=== PATIENT | female | born 1945 | race Caucasian/White ===

== ENCOUNTER 2021-04-23 13:23 | Outpatient (CLI) | payer MEDICARE, OTHER, SELFPAY ==
--- NOTE | 2021-04-23 13:36 | MM_ITS ---
WS: [id number] BILATERAL DIGITAL SCREENING MAMMOGRAPHY WITH CAD CLINICAL INFORMATION: SCREENING HISTORY: Screening mammogram. No current complaints. COMPARISON: 010 TECHNIQUE: Bilateral CC and MLO views. FINDINGS: Scattered fibroglandular densities bilaterally. Vascular calcification. A few benign incidental punct ate calcifications are unchanged. Coarse clustered calcifications left breast. No suspicious focal ma ss, asymmetry, calcifications, or architectural distortion. No evidence of malignancy. MM/[place] [id number] IMPRESSION: BI-RADS: 2-Benign FOLLOW UP: 1 Year Follow-up Recommend return to annual screening mammography.
== END 2021-04-23 13:24 | disposition home or self-care (01) ==
PROVIDERS: PCP Nurse Practitioner; Visit Provider Nurse Practitioner
DX: Z12.31 Encounter for screening mammogram for malignant neoplasm of breast (principal)
CPT/HCPCS: 77067

== ENCOUNTER 2023-02-14 15:37 | Observation (INO) | payer MEDICARE, OTHER, SELFPAY ==
[2023-02-14 15:52] VITALS: BP 165/97; PULSE 85; RESP 17; TEMP 37; O2SAT 100; BMI 30.1
--- NOTE | 2023-02-14 15:55 | USR_ITS ---
PROCEDURE INFORMATION: Exam: US Duplex Left Lower Extremity Veins, Limited Exam date and time: 02/14/2023 4:20 PM Age: 77 years old Clinical indication: Pain; Leg, lower; Left; Additional info: Swelling TECHNIQUE: Imaging protocol: Real-time duplex ultrasound of the left extremity with 2-D jeffries scale, color Doppler flow and spectral waveform analysis including responses to compression and other maneuvers (when performed) with image documentation. Limited exam focused on the left lower extremity veins. COMPARISON: No relevant prior studies available. FINDINGS: Left deep veins: Unremarkable. The common femoral, femoral, proximal profunda femoral, popliteal, posterior tibial and peroneal veins are patent without thrombus. Normal compressibility, augmentation response and Doppler waveforms. Superficial veins: Unremarkable. Saphenofemoral junction is patent without thrombus. Soft tissues: Subcutaneous edema and calf. US/CV venous duplex [facility] [id number] IMPRESSION: No sonographic evidence of deep vein thrombosis.
--- NOTE | 2023-02-14 16:04 | W.ED.EXTPRO ---
HPI - Extremity Problem General: Chief complaint: Extremity Problem,Nontraumatic Stated complaint: left foot/leg pain Time Seen by Provider: 02/14/23 15:52 Source: patient Mode of arrival: ambulatory Limitations: no limitations History of Present Illness: Patient is a 77-year-old female who presents the emergency room with left leg redness and pain. Patient reports on Tuesday 02[facility]06, [facility] she was walking around a lot. States that when she noticed her left leg increasing in swelling and redness. Patient reports that she has had fevers for the past 2 to 3 days. Denies any chest pain or shortness of breath or abdominal pain. Reports minimal pain 06/26. MD Complaint: extremity pain and extremity swelling Onset (ago): week(s) (1) Location: left Associated symptoms: Reports fever(s); Deny chest pain Review of Systems Const: Reports: fever(s), chills and night sweats Eyes: Denies: change in vision or blurry vision ENMT: Denies: throat pain Card: Denies: chest pain or palpitations Resp: Denies: dyspnea or productive cough GI: Denies: abdominal pain, nausea or vomiting : Denies: flank pain Musc: Denies: neck pain or back pain Skin/Breast: Reports: erythema and skin tenderness Neuro: Reports: weakness in extremities; Denies: headache(s) or numbness in extremities Physical Exam Const: COMMON NORMALS: no acute distress and alert GENERAL APPEARANCE: cooperative HENMT: COMMON NORMALS: normocephalic HEAD & SCALP: normocephalic Eye: COMMON NORMALS: Equal, round and reactive pupils present and EOMs intact bilaterally PUPIL: Yes Equal, round and reactive pupils present Neck/C-Spine: COMMON NORMALS: full ROM, no lymphadenopathy and no JVD Lymph: LYMPHATIC: no lymphadenopathy noted Chest: CHEST: Yes Symmetrical chest wall rise Resp: COMMON NORMALS: normal respiratory effort and clear to auscultation bilaterally AUSCULTATION: clear to auscultation bilaterally Cardio: COMMON NORMALS: no JVD and S1 normal heart sound present HEART SOUNDS: S1 normal heart sound present GI: COMMON NORMALS: Normal to inspection, nondistended, normoactive bowel sounds present : COMMON NORMALS: Yes no CVA tenderness BLADDER/KIDNEY EXAM: Yes no CVA tenderness Back/Pelvis: COMMON NORMALS: no CVA tenderness Extremity: LEFT LOWER EXTREMITY: Yes lower leg (4 pitting edema) Left lower leg: Yes inspection and Yes palpation Neuro: SENSORIUM/ORIENTATION: Yes alert Skin: GENERAL SKIN EXAM: erythema Course Vital Signs: Vital signs: Vital Signs Temperature 98.6 F 02/14/23 15:52 Pulse Rate 85 02/14/23 15:52 Respiratory Rate 17 02/14/23 15:52 Blood Pressure 165/97 02/14/23 15:52 Pulse Oximetry 100 02/14/23 15:52 Oxygen Delivery Me thod Room Air 02/14/23 15:52 MDM - Extremity (Nontraumatic) Medical Decision Making Patient presents here with cellulitis of her left lower leg ultrasound showed no DVT spoke to the hospitalist will admit at this time. Medical Records I reviewed the patient's medical records. Lab Data I reviewed the patient's lab results. 02/14/23 16:08 02/14/23 16:08 Laboratory Results WBC 8.99 10^3/uL (3.29-11.43) 02/14/23 16:08 RBC 4.56 10^6/uL (3.85-5.65) 02/14/23 16:08 Hgb 13.40 g/dL (11.27-16.99) 02/14/23 16:08 Hct 40.3 % (36-47) 02/14/23 16:08 MCV 88.4 fl (85-98) 02/14/23 16:08 MCH 29.4 pg (27-33) 02/14/23 16:08 MCHC 33.3 g/dL (30-55) 02/14/23 16:08 RDW 13.0 % (12.1-15.1) 02/14/23 16:08 Plt Count 224 10^3/cmm (157-399) 02/14/23 16:08 MPV 10.3 fL (7.4-10.4) 02/14/23 16:08 Neut % (Auto) 66.7 % 02/14/23 16:08 Lymph % (Auto) 21.2 % 02/14/23 16:08 [place] % (Auto) 8.9 % 02/14/23 16:08 Eos % (Auto) 2.1 % 02/14/23 16:08 Baso % (Auto) 0.7 % 02/14/23 16:08 Neut # (Auto) 5.99 10^3/uL (1.8-7.7) 02/14/23 16:08 Lymph # (Auto) 1.9 10^3/uL (0.8-4.8) 02/14/23 16:08 [place] # (Auto) 0.8 10^3/uL (0.2-0.9) 02/14/23 16:08 Eos # (Auto) 0.2 10^3/uL (0.0-0.8) 02/14/23 16:08 Baso # (Auto) 0.1 10^3/uL (0.0-0.1) 02/14/23 16:08 Nucleated RBC % (auto) 0 % 02/14/23 16:08 Nucleated RBCs # 0.0 /100WBC 02/14/23 16:08 Sodium 137 mmol/L (136-145) 02/14/23 16:08 Potassium 3.5 mmol/L (3.5-5.1) 02/14/23 16:08 Chloride 100 mmol/L (98-107) 02/14/23 16:08 Carbon Dioxide 22 mmol/L (22-29) 02/14/23 16:08 Anion Gap 18.5 (5-19) 02/14/23 16:08 BUN 19 mg/dL (8-23) 02/14/23 16:08 Creatinine 1.0 mg/dL (0.5-0.9) H 02/14/23 16:08 GFR Calculation Not Reportable 02/14/23 16:08 Glucose 139 mg/dL (65-115) H 02/14/23 16:08 Calculated Osmolality 289 mOsm/kg (285-295) 02/14/23 16:08 Calcium 9.1 mg/dL (8.5-10.5) 02/14/23 16:08 All radiology interpretation(s) finalized by discharge Discharge Plan Discharge Patient Disposition: Placed in Observation Clinical Impression: Cellulitis Coding Level of Care Code ED Cuprous Chloride Helper for Fabrice Kang
[2023-02-14 16:16] LABS: Basophils # 0.1 10^3/uL (0.0-0.1); Basophils % 0.7 %; Eosinophils # 0.2 10^3/uL (0.0-0.8); Eosinophils % 2.1 %; Hematocrit 40.3 % (36-47); Lymphocytes # 1.9 10^3/uL (0.8-4.8); Lymphocytes % 21.2 %; Mean Corpuscular HGB Conc 33.3 g/dL (30-55); Mean Corpuscular Hemoglobin 29.4 pg (27-33); Mean Corpuscular Volume 88.4 fl (85-98); Mean Platelet Volume 10.3 fL (7.4-10.4); Monocytes # 0.8 10^3/uL (0.2-0.9); Monocytes % 8.9 %; Neutrophils # 5.99 10^3/uL (1.8-7.7); Neutrophils % 66.7 %; Nucleated Red Blood Cells % 0 %; Platelet Count 224 10^3/cmm (157-399); Red Blood Count 4.56 10^6/uL (3.85-5.65); White Blood Count 8.99 10^3/uL (3.29-11.43)
[2023-02-14 16:39] LABS: Anion Gap 18.5 (5-19); Blood Urea Nitrogen 19 mg/dL (8-23); Calcium 9.1 mg/dL (8.5-10.5); Carbon Dioxide 22 mmol/L (22-29); Chloride 100 mmol/L (98-107); Creatinine Clr Calc Pharmacy 47.0593; Glucose 139 mg/dL (65-115); Osmolality Calculated 289 mOsm/kg (285-295); Potassium 3.5 mmol/L (3.5-5.1); Sodium 137 mmol/L (136-145)
[2023-02-14] MEDS: vancomycin 1,000 MG in sodium chloride 0.9% 250 ML 250 MG IV (17:40)
--- NOTE | 2023-02-14 17:55 | PM.HP ---
Providers/Chief Complaint Admitting Physician: Arturo Smith MD Primary Care Provider: MAHESH Lyons Chief Complaint: left foot/leg pain History of Present Illness Kanika Encinas is a 77 year old female who carries a history of diabetes, hypertension presented to hospital with 3-day symptoms of left lower leg redness and swelling. She does not have significant past medical history, she has not noticed any nausea, vomiting or fever. She is endorsing low-grade fever at home 99.9. In the ER she has been diagnosed with nonpurulent cellulitis I have requested CT scan of leg added IV antibiotics Check A1c level. Patient does not check her blood sugar on a daily basis. We will check CT scan of leg to rule out abscess she is not septic Review of Systems Const: Denies: fever(s) or chills Eyes: Denies: change in vision ENMT: Denies: throat pain Card: Denies: chest pain Resp: Denies: dyspnea GI: Denies: nausea : Denies: flank pain Musc: Denies: neck pain Skin/Breast: Reports: rash and skin swelling Neuro: Denies: headache(s) Psych: Reports: anxiety Medications/Allergies Home Medications Medication Instructions Recorded Confirmed Last Taken Type furosemide 20 mg tablet 20 mg PO DAILY 02/14/23 02/14/23 02/14/23 History lisinopril 20 mg tablet 20 mg PO DAILY 02/14/23 02/14/23 02/14/23 History metformin 500 mg tablet 1,000 mg PO BID 02/14/23 02/14/23 02/14/23 History potassium chloride 10 mEq 10 meq PO DAILY 02/14/23 02/14/23 02/14/23 History tablet,extended release PFSH Acute PFSH: Medical History (Updated 02/14/23 @ 18:27 by Arturo Smith MD) Diabetes Hypertension Surgical History (Updated 02/14/23 @ 18:28 by Arturo Smith MD) No pertinent past surgical history Vitals/I&O/Wt Last Vital Signs Temp 98.6 F 02/14/23 15:52 Pulse 85 02/14/23 15:52 Resp 17 02/14/23 15:52 BP 165/97 02/14/23 15:52 Pulse Ox 100 02/14/23 15:52 O2 Del Method Room Air 02/14/23 15:52 Weight last 48 hrs Weight 77.111 kg Physical Exam Narrative: Left lower leg swelling, redness without any signs of purulence Onychomycosis Awake and alert Due to 50 S1, S2 Nonfocal neuro exam Present Family at the bedside Data 02/14/23 16:08 02/14/23 16:08 Micro: Microbiology 02/14/23 17:00 Blood Culture - Preliminary Blood SPECIMEN COLLECTED A&P Assessment and plan (1) Cellulitis: Plan Nonpurulent cellulitis Antibiotics Patient is diabetic Check A1c level No signs of sepsis CT scan of lower leg requested Continue Lasix potassium and lisinopril at this point Full code Cardiac consistent carb diet GCS 15 DVT prophylaxis on Attestations Medical Necessity Statement*: Anticipating discharge within 48 hours Diagnoses Cellulitis L03.90
[2023-02-14 18:21] VITALS: BP 125/90; PULSE 86; O2SAT 96
--- NOTE | 2023-02-14 18:30 | CTR_ITS ---
PROCEDURE INFORMATION: Exam: CT Left Lower Extremity With Contrast; Lower Leg Exam date and time: 02/14/2023 10:50 PM Age: 77 years old Clinical indication: Cellulitis; Lower leg; Left TECHNIQUE: Imaging protocol: CT of the left lower extremity with intravenous contrast was performed. Exam focused on the lower leg. Radiation optimization: All CT scans at this facility use at least one of these dose optimization techniques: automated exposure control; mA and/or kV adjustment per patient size (includes targeted exams where dose is matched to clinical indication); or iterative reconstruction. Contrast material: OMNI 350; Contrast volume: 100 ml; Contrast route: INTRAVENOUS (IV); REPORTING DATA: Count of CT and Cardiac NM exams in prior 12 months: This patient has received 0 known CTs and 0 known cardiac nuclear medicine studies in the 12 months prior to the current study. COMPARISON: [place] [id number] 02/14/2023 4:20 PM RADIATION DOSE METRICS: Total DLP (mGy-cm): 597.95 FINDINGS: Bones/joints: No acute fracture or dislocation noted. No suspicious bone lesion is identified. Soft tissues: Extensive left lower lateral leg and ankle subcutaneous edema. Some pockets of subcutaneous fluid but no rim enhancing fluid collection. No soft tissue air. Popliteal node on series 5, image 14. Vasculature: Advanced diffuse vascular calcification noted. CT/CT lower leg LT w con [id number] IMPRESSION: Left lower leg and ankle/foot severe cellulitis with no abscess or soft tissue gas noted.
[2023-02-14 20:00] VITALS: BP 136/77; PULSE 86; RESP 18; TEMP 36.5; O2SAT 99
[2023-02-14] MEDS: enoxaparin 40 mg/0.4 mL Syringe SUBCUT (20:05)
[2023-02-14] MEDS: piperacillin-tazobactam 3.375 GM in sodium chloride 0.9% (plus) 50 ML IV (20:05)
[2023-02-14 20:53] LABS: Glucose Point of Care 223 mg/dL (70-110)
[2023-02-14 21:06] LABS: Estmated Average Glucose 131; Hemoglobin A1C 6.2 % (4.0-6.0)
[2023-02-14] MEDS: insulin lispro 100 unit/1 mL SUBCUT (21:18)
[2023-02-14 22:28] VITALS: PULSE 88; RESP 18; O2SAT 98
[2023-02-14] MEDS: iohexol 350 mg/mL 500 mL Btl (per mL) IV (22:34)
[2023-02-15] VITALS (8 sets, daily range): BP systolic 125–159; BP diastolic 72–83; PULSE 74–90; RESP 16–18; TEMP 36.4–37.1; O2SAT 93–98
[2023-02-15] MEDS: piperacillin-tazobactam 3.375 GM in sodium chloride 0.9% (plus) 50 ML IV ×3 (03:59→19:42)
[2023-02-15 04:12] LABS: Basophils # 0.1 10^3/uL (0.0-0.1); Basophils % 0.9 %; Eosinophils # 0.1 10^3/uL (0.0-0.8); Eosinophils % 1.7 %; Hematocrit 35.5 % (36-47); Lymphocytes # 1.7 10^3/uL (0.8-4.8); Lymphocytes % 20.5 %; Mean Corpuscular Hemoglobin 29.3 pg (27-33); Mean Platelet Volume 10.6 fL (7.4-10.4); Monocytes # 0.8 10^3/uL (0.2-0.9); Monocytes % 9.3 %; Neutrophils # 5.44 10^3/uL (1.8-7.7); Neutrophils % 67.1 %; Nucleated Red Blood Cells % 0 %; Platelet Count 221 10^3/cmm (157-399); Red Blood Count 3.99 10^6/uL (3.85-5.65)
[2023-02-15 04:43] LABS: Anion Gap 13.4 (5-19); Blood Urea Nitrogen 13 mg/dL (8-23); C Reactive Protein 72.9 mg/L (0.0-4.9); Calcium 8.8 mg/dL (8.5-10.5); Carbon Dioxide 26 mmol/L (22-29); Chloride 103 mmol/L (98-107); Glucose 133 mg/dL (65-115); Magnesium 2.1 mg/dL (1.7-2.3); Osmolality Calculated 290 mOsm/kg (285-295); Potassium 3.4 mmol/L (3.5-5.1); Sodium 139 mmol/L (136-145)
[2023-02-15] MEDS: sennosides-docusate Tablet 1 TAB PO (07:44)
[2023-02-15] MEDS: FUROsemide 20 mg Tablet PO (07:44)
[2023-02-15] MEDS: lisinopril 20 mg Tablet PO (07:45)
[2023-02-15] MEDS: potassium chloride ER 10 mEq Tablet PO (07:45)
[2023-02-15 08:01] LABS: Glucose Point of Care 96 mg/dL (70-110)
--- NOTE | 2023-02-15 10:07 | PM.PN ---
Subjective Subjective: Cellulitis seems to be getting better Continue IV antibiotics for 1 more day Events No sign of abscess or sepsis Vitals/I&O/Wt Last Vital Signs Temp 97.5 F L 02/15/23 08:36 Pulse 77 02/15/23 08:36 Resp 16 02/15/23 08:36 BP 152/81 02/15/23 08:36 Pulse Ox 96 02/15/23 08:36 O2 Del Method Room Air 02/15/23 08:36 02/14/23 02/15/23 02/15/23 22:59 06:59 14:59 Intake Total 490 / 490 50 / 540 410 / 410 Output Total 300 / 300 Balance 490 / 490 -250 / 240 410 / 410 Weight last 48 hrs Weight 77.111 kg Physical Exam Narrative: Patient is awake and alert Left leg erythema seems to be getting better No active DVT Focal neuro exam Currently on room air Pleasant and cooperative Eating breakfast S1, S2 Data 02/15/23 03:14 02/15/23 03:14 Micro: Microbiology 02/14/23 17:42 Blood Culture - Preliminary Blood SPECIMEN COLLECTED 02/14/23 17:00 Blood Culture - Preliminary Blood SPECIMEN COLLECTED A&P Assessment and plan (1) Cellulitis: Plan Nonpurulent cellulitis No sign of sepsis Continue IV antibiotics Erythema/hyperemia regressing No signs of abscess CT scan reviewed Her redness is getting better however it is still involving whole left lower extremity I would like to keep her here 1 more day for IV antibiotics Most likely will be able to discharge on oral antibiotics tomorrow Replenish electrolytes, potassium is low Patient takes metformin at home hemoglobin A1c 6.2 Attestations Medical Necessity Statement*: Discharge tomorrow Diagnoses Cellulitis L03.90
[2023-02-15] MEDS: potassium chloride ER 20 mEq Tablet PO (10:23)
[2023-02-15 11:22] LABS: Glucose Point of Care 148 mg/dL (70-110)
[2023-02-15] MEDS: insulin lispro 100 unit/1 mL SUBCUT (11:51)
[2023-02-15 16:38] LABS: Glucose Point of Care 119 mg/dL (70-110)
[2023-02-15] MEDS: vancomycin 1,000 MG in sodium chloride 0.9% 250 ML 250 MG IV (17:21)
[2023-02-15] MEDS: enoxaparin 40 mg/0.4 mL Syringe SUBCUT (17:21)
[2023-02-15 21:13] LABS: Glucose Point of Care 165 mg/dL (70-110)
[2023-02-16] VITALS: BP 120/86; PULSE 80; RESP 18; TEMP 36.9; O2SAT 98
[2023-02-16] MEDS: piperacillin-tazobactam 3.375 GM in sodium chloride 0.9% (plus) 50 ML IV (03:45)
[2023-02-16 05:00] VITALS: BP 139/77; PULSE 79; RESP 18; TEMP 36.9; O2SAT 93
[2023-02-16 05:42] LABS: Basophils # 0.1 10^3/uL (0.0-0.1); Basophils % 0.9 %; Eosinophils # 0.3 10^3/uL (0.0-0.8); Eosinophils % 3.3 %; Hematocrit 36.3 % (36-47); Lymphocytes # 1.7 10^3/uL (0.8-4.8); Lymphocytes % 22.4 %; Mean Corpuscular HGB Conc 34.2 g/dL (30-55); Mean Corpuscular Hemoglobin 29.9 pg (27-33); Mean Corpuscular Volume 87.5 fl (85-98); Mean Platelet Volume 10.4 fL (7.4-10.4); Monocytes # 0.7 10^3/uL (0.2-0.9); Monocytes % 9.3 %; Neutrophils # 4.72 10^3/uL (1.8-7.7); Nucleated Red Blood Cells % 0 %; Platelet Count 255 10^3/cmm (157-399); Red Blood Count 4.15 10^6/uL (3.85-5.65)
[2023-02-16 05:53] LABS: Anion Gap 16.5 (5-19); Blood Urea Nitrogen 10 mg/dL (8-23); Carbon Dioxide 23 mmol/L (22-29); Chloride 100 mmol/L (98-107); Glucose 137 mg/dL (65-115); Osmolality Calculated 283 mOsm/kg (285-295); Potassium 3.5 mmol/L (3.5-5.1); Sodium 136 mmol/L (136-145)
[2023-02-16 06:32] LABS: Glucose Point of Care 125 mg/dL (70-110)
[2023-02-16 07:05] VITALS: BP 158/81; PULSE 82; RESP 15; O2SAT 98
[2023-02-16 08:37] VITALS: PULSE 82; RESP 16; O2SAT 95
[2023-02-16] MEDS: potassium chloride ER 10 mEq Tablet PO (08:41)
[2023-02-16] MEDS: FUROsemide 20 mg Tablet PO (08:42)
[2023-02-16] MEDS: lisinopril 20 mg Tablet PO (08:43)
[2023-02-16] MEDS: sennosides-docusate Tablet 1 TAB PO (08:43)
[2023-02-16] MEDS: potassium chloride ER 20 mEq Tablet PO (08:44)
--- NOTE | 2023-02-16 10:31 | PM.DCS ---
Discharge Providers Date of Admission: 02/14/23 16:34 Date of Discharge: February 16, 2023 Attending Provider at Admission: Arturo Smith MD Attending Provider at Discharge: Arturo Smith MD Primary Care Provider: MAHESH Lyons Diagnoses at Discharge Discharge Diagnosis (1) Cellulitis: Status: Acute Reason for Visit Reason for Visit: left foot/leg pain Hospital Course Hospital Course 77-year-old female who was admitted for management evaluation of lower extremity cellulitis no signs of DVT, she has significant swelling and redness she was given IV antibiotics which improved her signs and symptoms she remained afebrile no leukocytosis, CT scan of lower extremity did not show any abscess or necrotizing fasciitis features. Patient is diabetic does have onychomycosis. At the time of discharge I will give her doxycycline and Augmentin 5-day course I have asked her to see Dr. Spicer I do believe source of infection is onychomycosis Physical Exam Narrative: Awake and alert Redness of lower extremity improving GCS 15 Pleasant and cooperative Discharge Data Studies Completed and Pending Completed Studies During Hospitalization Category Date Time Status CT lower leg LT w con [id number] Routine Cat Scan 02/14/23 18:30 Completed US venous duplex lower extremity LT [CV venous duplex Ultrasound 02/14/23 15:55 [place] [id number]] Stat Pending at discharge Category Date Time Status Blood Culture Stat Lab 02/14/23 17:42 Results Vancomycin Trough Timed Lab 02/16/23 17:00 Ordered Radiology Impressions Venous Duplex 02/14/23 15:55 IMPRESSION: No sonographic evidence of deep vein thrombosis. Lower Extremity CT 02/14/23 18:30 IMPRESSION: Left lower leg and ankle/foot severe cellulitis with no abscess or soft tissue gas noted. Laboratory Results WBC 7.50 10^3/uL (3.29-11.43) 02/16/23 05:15 RBC 4.15 10^6/uL (3.85-5.65) 02/16/23 05:15 Hgb 12.40 g/dL (11.27-16.99) 02/16/23 05:15 Hct 36.3 % (36-47) 02/16/23 05:15 MCV 87.5 fl (85-98) 02/16/23 05:15 MCH 29.9 pg (27-33) 02/16/23 05:15 MCHC 34.2 g/dL (30-55) 02/16/23 05:15 RDW 13.0 % (12.1-15.1) 02/16/23 05:15 Plt Count 255 10^3/cmm (157-399) 02/16/23 05:15 MPV 10.4 fL (7.4-10.4) 02/16/23 05:15 Neut % (Auto) 63.0 % 02/16/23 05:15 Lymph % (Auto) 22.4 % 02/16/23 05:15 [place] % (Auto) 9.3 % 02/16/23 05:15 Eos % (Auto) 3.3 % 02/16/23 05:15 Baso % (Auto) 0.9 % 02/16/23 05:15 Neut # (Auto) 4.72 10^3/uL (1.8-7.7) 02/16/23 05:15 Lymph # (Auto) 1.7 10^3/uL (0.8-4.8) 02/16/23 05:15 [place] # (Auto) 0.7 10^3/uL (0.2-0.9) 02/16/23 05:15 Eos # (Auto) 0.3 10^3/uL (0.0-0.8) 02/16/23 05:15 Baso # (Auto) 0.1 10^3/uL (0.0-0.1) 02/16/23 05:15 Nucleated RBC % (auto) 0 % 02/16/23 05:15 Nucleated RBCs # 0.0 /100WBC 02/16/23 05:15 Sodium 136 mmol/L (136-145) 02/16/23 05:15 Potassium 3.5 mmol/L (3.5-5.1) 02/16/23 05:15 Chloride 100 mmol/L (98-107) 02/16/23 05:15 Carbon Dioxide 23 mmol/L (22-29) 02/16/23 05:15 Anion Gap 16.5 (5-19) 02/16/23 05:15 BUN 10 mg/dL (8-23) 02/16/23 05:15 Creatinine 0.9 mg/dL (0.5-0.9) 02/16/23 05:15 GFR Calculation Not Reportable 02/16/23 05:15 Glucose 137 mg/dL (65-115) H 02/16/23 05:15 POC Glucose 125 mg/dL (70-110) H 02/16/23 06:13 Estimat Average Glucose 131 02/14/23 16:08 Hemoglobin A1c 6.2 % (4.0-6.0) H 02/14/23 16:08 Calculated Osmolality 283 mOsm/kg (285-295) L 02/16/23 05:15 Calcium 9.0 mg/dL (8.5-10.5) 02/16/23 05:15 Magnesium 2.1 mg/dL (1.7-2.3) 02/15/23 03:14 C-Reactive Protein 72.9 mg/L (0.0-4.9) H 02/15/23 03:14 Vitals Last Vital Signs Temp 98.4 F 02/16/23 05:00 Pulse 82 02/16/23 08:37 Resp 16 02/16/23 08:37 BP 158/81 02/16/23 07:05 Pulse Ox 95 02/16/23 08:37 O2 Del Method Room Air 02/16/23 08:37 Discharge Plan Discharge Patient Disposition: Home Condition: Stable Prescriptions: New (DME) LifestyleComfort Socks Large Misc See Rx Instructions .Route Qty: 1 0RF Rx Instructions: As directed amoxicillin-pot clavulanate 875-125 mg tablet 1 tab PO BID Qty: 14 0RF doxycycline hyclate 100 mg tablet 100 mg PO BID 7 Days Qty: 14 0RF Continued metformin 500 mg tablet 1,000 mg PO BID furosemide 20 mg tablet 20 mg PO DAILY Qty: 30 0RF lisinopril 20 mg tablet 20 mg PO DAILY Qty: 30 0RF potassium chloride 10 mEq tablet extended release 10 meq PO DAILY Qty: 30 0RF Discharge Orders: Discharge Order (Routine); Ordered 02/16/23 Ordered By: Arturo Smith Referrals: Mile Laird FNP [Primary Care Provider] - 02/18/23 2:30 pm Jonathan Spicer DPM [Physician] - 2 weeks Patient Instructions: Opioid Safety Discharge Attestations Time Spent in Discharge Care*: greater than 30 min Quality Metrics Clinical Quality Measures [ No reported AMI, CVA or VTE this stay] Coding Level of Care Code Acute Code for Chg Fwd Diagnoses Cellulitis L03.90
[2023-02-16 10:55] VITALS: BP 146/80; PULSE 83; RESP 16; TEMP 36.4; O2SAT 93
[2023-02-16] MEDS: insulin lispro 100 unit/1 mL SUBCUT (11:52)
[2023-02-16 11:55] LABS: Glucose Point of Care 192 mg/dL (70-110)
== END 2023-02-16 12:15 | disposition home or self-care (01) ==
LOC: ER 16:48 → MEDSURG 17:39
PROVIDERS: Admitting Provider Internal Medicine; Emergency Provider Emergency Medicine; PCP Nurse Practitioner Family; Visit Provider Internal Medicine
DX: L03.90 Cellulitis, unspecified (principal); E11.9 Type 2 diabetes mellitus without complications; I10 Essential (primary) hypertension; Z79.84 Long term (current) use of oral hypoglycemic drugs
CPT/HCPCS: 36415; 36416; 73701; 80048; 82962; 83036; 83735; 85025; 86140; 87040; 93971; 96365; 96367; 96372; 99285; G0378; J1650; J1815; J2543; J3370; J7050; Q9967

== ENCOUNTER 2023-04-11 19:05 | Inpatient (IN) | payer MEDICARE, OTHER, SELFPAY ==
[2023-04-11 19:10] VITALS: BP 131/91; PULSE 137; RESP 16; TEMP 36.9; O2SAT 97; BMI 29.2
--- NOTE | 2023-04-11 19:22 | W.ED.EXTPRO ---
HPI - Extremity Problem General: Chief complaint: Extremity Injury, Lower Stated complaint: Rt Leg Pain Time Seen by Provider: 04/11/23 19:23 History of Present Illness: This 77-year-old female with a history of diabetes was brought in by family with redness, warmth, and pain in the left leg. Per patient, it started today. Granddaughter notes that patient was hot to the touch earlier though she did not take patient's temperature. She had given her some medications prior to ER arrival. Patient had cellulitis in that left lower extremity about a month and a half ago and was admitted for IV antibiotics at that time. She denies nausea, vomiting or chest pain. She is tachycardic with heart rate in the 140s. Associated symptoms: Deny chest pain Review of Systems Const: Denies: chills, body aches or change in appetite Eyes: Denies: change in vision or eye discharge ENMT: Denies: throat pain, dental pain or nasal discharge Card: Denies: chest pain or lightheadedness : Denies: dysuria Musc: Reports: extremity pain (left leg), extremity swelling (left leg) and other (warmth on left leg); Denies: neck pain or back pain Neuro: Denies: headache(s) or weakness in extremities Psych: Denies: depression Doe/Lymph: Denies: easy bruising All/Imm: Denies: urticaria, tongue swelling or facial swelling PFSH ED PFSH: Medical History Cellulitis Diabetes Hypertension Surgical History No pertinent past surgical history Physical Exam Const: COMMON NORMALS: no acute distress, patient oriented x3, no limitations and alert HENMT: COMMON NORMALS: normocephalic HEAD & SCALP: normocephalic Eye: COMMON NORMALS: EOMs intact bilaterally Neck/C-Spine: COMMON NORMALS: full ROM and supple Chest: COMMONS NORMALS: normal inspection of the chest Resp: COMMON NORMALS: normal respiratory effort, No retractions, No use of accessory muscles and clear to auscultation bilaterally AUSCULTATION: clear to auscultation bilaterally Cardio: COMMON NORMALS: regular rhythm and No murmurs present (Cardio) RATE: tachycardic RHYTHM: regular rhythm GI: COMMON NORMALS: Normal to inspection, nondistended, normoactive bowel sounds present and non-tender : COMMON NORMALS: Yes no CVA tenderness BLADDER/KIDNEY EXAM: Yes no CVA tenderness Back/Pelvis: COMMON NORMALS: no CVA tenderness and no thoracic nor lumbar tenderness Extremity: OTHER: Erythema, swelling and tenderness involving three quarters of the left leg with extension into the dorsum of the foot. No distal neurovascular deficit. Area is warm to touch. It is most consistent with cellulitis. Neuro: COMMON NORMALS: patient oriented x3 and no focal motor deficits SENSORIUM/ORIENTATION: Yes alert Psych: COMMON NORMALS: mental status grossly normal and cooperative Course Vital Signs: Vital signs: Vital Signs Temperature 98.4 F 04/11/23 19:10 Pulse Rate 137 H 04/11/23 21:02 Respiratory Rate 20 H 04/11/23 21:02 Blood Pressure 132/101 04/11/23 20:22 Pulse Oximetry 94 04/11/23 21:02 Oxygen Delivery Me thod Room Air 04/11/23 21:02 MDM - Extremity (Nontraumatic) Medical Decision Making Medical decision making: History as above. Patient notes that the redness and swelling appeared today. It is warm and painful to touch. It is most consistent with acute cellulitis. Given that the redness appeared today and has progressed to this extent, coupled with the fact that patient has diabetes, she would benefit from IV antibiotics. Blood cultures drawn and IV antibiotics started. Lab Data 04/11/23 20:33 04/11/23 20:33 Laboratory Results WBC 11.07 10^3/uL (3.29-11.43) 04/11/23 20:33 RBC 4.77 10^6/uL (3.85-5.65) 04/11/23 20:33 Hgb 14.40 g/dL (11.27-16.99) 04/11/23 20:33 Hct 42.6 % (36-47) 04/11/23 20:33 MCV 89.3 fl (85-98) 04/11/23 20:33 MCH 30.2 pg (27-33) 04/11/23 20: MCHC 33.8 g/dL (30-55) 04/11/23 20:33 RDW 13.8 % (12.1-15.1) 04/11/23 20:33 Plt Count 239 10^3/cmm (157-399) 04/11/23 20: MPV 10.5 fL (7.4-10.4) H 04/11/23 20:33 Neut % (Auto) 80.1 % 04/11/23 20:33 Lymph % (Auto) 12.4 % 04/11/23 20: [place] % (Auto) 5.9 % 04/11/23 20: Eos % (Auto) 0.8 % 04/11/23 20:33 Baso % (Auto) 0.5 % 04/11/23 20: Neut # (Auto) 8.88 10^3/uL (1.8-7.7) H 04/11/23 20: Lymph # (Auto) 1.4 10^3/uL (0.8-4.8) 04/11/23 20: [place] # (Auto) 0.7 10^3/uL (0.2-0.9) 04/11/23 20: Eos # (Auto) 0.1 10^3/uL (0.0-0.8) 04/11/23 20:33 Baso # (Auto) 0.1 10^3/uL (0.0-0.1) 04/11/23 20: Nucleated RBC % (auto) 0 % 04/11/23 20: Nucleated RBCs # 0.0 /100WBC 04/11/23 20:33 D-Dimer 0.81 ug/mLFEU (0-0.59) H 04/11/23 20:33 Sodium 136 mmol/L (136-145) 04/11/23 20:33 Potassium 3.8 mmol/L (3.5-5.1) 04/11/23 20:33 Chloride 99 mmol/L (98-107) 04/11/23 20:33 Carbon Dioxide 24 mmol/L (22-29) 04/11/23 20:33 Anion Gap 16.8 (5-19) 04/11/23 20:33 BUN 11 mg/dL (8-23) 04/11/23 20:33 Creatinine 0.8 mg/dL (0.5-0.9) 04/11/23 20:33 GFR Calculation Not Reportable 04/11/23 20:33 Glucose 159 mg/dL (65-115) H 04/11/23 20:33 Calculated Osmolality 285 mOsm/kg (285-295) 04/11/23 20:33 Lactic Acid 1.4 mmol/L (0.5-2.2) 04/11/23 20:33 Calcium 9.8 mg/dL (8.5-10.5) 04/11/23 20:33 Total Bilirubin 0.8 mg/dL (0.15-1.2) 04/11/23 20:33 AST 26 U/L (0-32) 04/11/23 20:33 ALT 16 U/L (0-33) 04/11/23 20:33 Alkaline Phosphatase 84 U/L (35-105) 04/11/23 20:33 Total Protein 8.5 g/dL (6.6-8.7) 04/11/23 20:33 Albumin 4.5 g/dL (3.5-5.2) 04/11/23 20:33 Globulin 4.0 g/dL (1.3-4.6) 04/11/23 20:33 No radiology studies performed this visit Discharge Plan Discharge Patient Disposition: Admitted As Inpatient Clinical Impression: Cellulitis of left lower leg Condition: Stable Coding Level of Care Code ED Research Quality Assurance Analyst for Fabrice Kang
[2023-04-11 20:22] VITALS: BP 132/101; PULSE 130; RESP 16; O2SAT 96
[2023-04-11 20:45] VITALS: PULSE 134; RESP 18; O2SAT 98
--- NOTE | 2023-04-11 20:51 | PC.NURSE ---
Delay to medical technicians due to waiting on [employer] to verify medication.
[2023-04-11 20:55] LABS: Basophils # 0.1 10^3/uL (0.0-0.1); Basophils % 0.5 %; Eosinophils # 0.1 10^3/uL (0.0-0.8); Eosinophils % 0.8 %; Hematocrit 42.6 % (36-47); Lymphocytes # 1.4 10^3/uL (0.8-4.8); Lymphocytes % 12.4 %; Mean Corpuscular HGB Conc 33.8 g/dL (30-55); Mean Corpuscular Hemoglobin 30.2 pg (27-33); Mean Corpuscular Volume 89.3 fl (85-98); Mean Platelet Volume 10.5 fL (7.4-10.4); Monocytes # 0.7 10^3/uL (0.2-0.9); Monocytes % 5.9 %; Neutrophils # 8.88 10^3/uL (1.8-7.7); Neutrophils % 80.1 %; Nucleated Red Blood Cells % 0 %; Platelet Count 239 10^3/cmm (157-399); Red Blood Count 4.77 10^6/uL (3.85-5.65); Red Cell Distribution Width 13.8 % (12.1-15.1); White Blood Count 11.07 10^3/uL (3.29-11.43)
[2023-04-11 21:02] VITALS: PULSE 137; RESP 20; O2SAT 94
--- NOTE | 2023-04-11 21:09 | PC.NURSE ---
Medication not verified. Called [employer] a second time.
[2023-04-11 21:11] LABS: Lactic Sepsis W/Reflex 1.4 mmol/L (0.5-2.2)
[2023-04-11 21:16] LABS: Alanine Aminotransferase 16 U/L (0-33); Albumin Level 4.5 g/dL (3.5-5.2); Alkaline Phosphatase 84 U/L (35-105); Anion Gap 16.8 (5-19); Aspartate Amino Transferase 26 U/L (0-32); Blood Urea Nitrogen 11 mg/dL (8-23); Calcium 9.8 mg/dL (8.5-10.5); Carbon Dioxide 24 mmol/L (22-29); Chloride 99 mmol/L (98-107); Glucose 159 mg/dL (65-115); Osmolality Calculated 285 mOsm/kg (285-295); Potassium 3.8 mmol/L (3.5-5.1); Sodium 136 mmol/L (136-145); Total Bilirubin 0.8 mg/dL (0.15-1.2); Total Protein 8.5 g/dL (6.6-8.7)
--- NOTE | 2023-04-11 21:43 | ECG_ITS ---
[facility] Test Date: 2023-04-11 Pat Name: Kanika Encinas Department: Room: Gender: Female Adjunct Lecturer: : 1945 Requested By: Benny Harrell Order Number: [id number] Delon MD: Nicholas Adams M.D. Measurements Intervals [place] Rate: 129 P: 207 ME: 110 QRS: -20 QRSD: 94 T: 43 QT: 316 QTc: 464 Interpretive Statements SINUS TACHYCARDIA WITH SHORT ME INTERVAL ABNORMAL RHYTHM ECG No previous ECG available for comparison Electronically Signed On 04-12-2023 9:15:01 INDUSTRIAL RETROFIT DESIGNER by Nicholas Adams M.D. [email or web address]
--- NOTE | 2023-04-11 22:16 | P.HP_ITS ---
Providers/Chief Complaint Primary Care Provider: MAHESH Lyons Chief Complaint: Rt Leg Pain History of Present Illness Kanika Encinas is a 77 year old female with history of onychomycosis, diabetes, lower extremity edema and cellulitis she was treated a month ago with IV antibiotics for cellulitis which improved her symptoms, there was no sign of DVT, patient remained afebrile, patient was given doxycycline and Augmentin 5- day regimen at the time of discharge with podiatry follow-up. She has not seen Dr. Spicer yet. Today presenting with chief complaint of redness swelling erythema of her leg with subjective fevers. She has been tachycardic in the ER her heart rate was in 140s sinus tachycardia I requested venous Doppler and CTA chest along D-dimer. She received IV fluids. She is afebrile. Patient is stating that her redness of left leg started today and she was in extreme pain she started crying because of pain, she has not noticed any chest pain, productive cough, hemoptysis. She never had any sinus tachycardia or A- fib RVR in the past. Patient is endorsing cat scratch on her left leg few days ago, she has fallen multiple times today. Review of Systems Const: Reports: fever(s) and chills Eyes: Denies: change in vision ENMT: Denies: throat pain Card: Denies: chest pain Resp: Denies: dyspnea GI: Denies: abdominal pain : Denies: flank pain Medications/Allergies Home Medications Medication Instructions Recorded Confirmed Last Taken Type metformin 500 mg tablet 1,000 mg PO BID 02/14/23 02/14/23 02/14/23 History amoxicillin 875 mg-potassium 1 tab PO BID #14 tabs 02/16/23 Unknown Rx clavulanate 125 mg tablet compression socks, large #1 ea 02/16/23 Unknown Rx (LifestyleComfort Socks Large) furosemide 20 mg tablet 20 mg PO DAILY #30 tabs 02/16/23 02/14/23 02/14/23 Rx lisinopril 20 mg tablet 20 mg PO DAILY #30 tabs 02/16/23 02/14/23 02/14/23 Rx potassium chloride 10 mEq 10 meq PO DAILY #30 tabs 02/16/23 02/14/23 02/14/23 Rx tablet,extended release Allergies Allergy/AdvReac Type Severity Reaction Status Date / Time No Known Allergies Allergy Verified 02/14/23 18:41 PFSH Acute PFSH: Medical History Cellulitis Diabetes Hypertension Surgical History No pertinent past surgical history Vitals/I&O/Wt Last Vital Signs Temp 98.4 F 04/11/23 19:10 Pulse 137 H 04/11/23 21:02 Resp 20 H 04/11/23 21:02 BP 132/101 04/11/23 20:22 Pulse Ox 94 04/11/23 21:02 O2 Del Method Room Air 04/11/23 21:02 Weight last 48 hrs Weight 68.039 kg Physical Exam Narrative: Awake and alert GCS 15 Doximity lymphedema Left lower extremity cellulitis nonpurulent Cat scratch noted No active purulence noted Wound is healing No sign of ischemic ulcer No sign of gangrene Pleasant and cooperative Currently movement Sinus tachycardia heart rate 140s No active chest pain S1, S2 Currently on room air Onychomycosis Data 04/11/23 20:33 04/11/23 20:33 Micro: Microbiology 04/11/23 20:45 Blood Culture - Preliminary Blood SPECIMEN COLLECTED 04/11/23 20:33 Blood Culture - Preliminary Blood SPECIMEN COLLECTED A&P Assessment and plan (1) Cellulitis of left lower leg: (2) Sinus tachycardia: Plan Nonpurulent left lower extremity cellulitis Start vancomycin and Zosyn considering history of diabetes Recent cat scratch Patient is afebrile no sign of sepsis No signs of purulence Requested venous Doppler to rule out DVT Sinus tachycardia requested CT chest rule out PE Patient is not complaining of active chest pain Leading a sedentary lifestyle Patient is hypertensive Start consistent carb diet with insulin sliding scale Full code Request physical therapy We will give her ketorolac anti-inflammatory medication I will give her therapeutic dose of Lovenox at this point until, bowel phenomenon is ruled out Attestations Medical Necessity Statement*: Less than 2 midnights anticipated for management of nonpurulent cellulitis and tachycardia Diagnoses Cellulitis of left lower leg L03.116 Sinus tachycardia R00.0
--- NOTE | 2023-04-11 22:17 | CTR_ITS ---
PROCEDURE INFORMATION: Exam: CTA Chest With Contrast Exam date and time: 04/11/2023 10:50 PM Age: 77 years old Clinical indication: Abnormal findings; Abnormal diagnostic tests; Elevated d-dimer; Patient HX: Dimer 0.81. Denies any cardio pulmonary complaints. ; Additional info: St TECHNIQUE: Imaging protocol: Computed tomographic angiography of the chest with contrast. Exam focused on the arteries. 3D rendering (Not supervised by radiologist): MIP and/or 3D reconstructed images were created by the technologist. Radiation optimization: All CT scans at this facility use at least one of these dose optimization techniques: automated exposure control; mA and/or kV adjustment per patient size (includes targeted exams where dose is matched to clinical indication); or iterative reconstruction. Contrast material: OMNI 350; Contrast volume: 54 ml; Contrast route: INTRAVENOUS (IV); REPORTING DATA: Count of CT and Cardiac NM exams in prior 12 months: This patient has received [address] and 0 known cardiac nuclear medicine studies in the 12 months prior to the current study. COMPARISON: No relevant prior studies available. RADIATION DOSE METRICS: Total DLP (mGy-cm): 380.25 FINDINGS: Pulmonary arteries: Normal. No pulmonary emboli. Aorta: Unremarkable. No aortic aneurysm. No aortic dissection. Lungs: Multiple calcified granulomas scattered throughout both lungs with calcified mediastinal and bilateral hilar lymph nodes consistent prior granulomatous infection. Pleural spaces: Unremarkable. No pneumothorax. No pleural effusion. Heart: Unremarkable. No cardiomegaly. No pericardial effusion. Lymph nodes: See Lungs finding. Liver: Multiple punctate calcifications throughout liver consistent with prior infection calcified stone in the gallbladder pericholecystic fluid. Bones/joints: Unremarkable. No acute fracture. Soft tissues: Unremarkable. CT/CT angio chest PE protcl [id number] IMPRESSION: 1. No pulmonary emboli. 2. No focal consolidation. 3. Diffuse scattered calcified granulomas throughout both lungs with multiple calcified mediastinal and bilateral hilar lymph nodes which can be seen the setting of prior granulomatous infection or granulomatous diseases such as sarcoidosis. 4. Scattered calcified nodules throughout the liver consistent with prior granulomatous infection.
[2023-04-11 22:43] LABS: D Dimer 0.81 ug/mLFEU (0-0.59)
[2023-04-11] MEDS: iohexol 350 mg/mL 500 mL Btl (per mL) IV (22:54)
[2023-04-11 23:11] VITALS: PULSE 137; RESP 20; O2SAT 94
[2023-04-11 23:26] LABS: Magnesium 1.8 mg/dL (1.7-2.3)
[2023-04-11 23:34] LABS: Procalcitonin 0.07 ng/mL (0-0.5)
[2023-04-12] VITALS (10 sets, daily range): BP systolic 116–133; BP diastolic 65–79; PULSE 68–90; RESP 15–18; TEMP 36.4–37.3; O2SAT 93–98
[2023-04-12] MEDS: vancomycin 1,000 MG in sodium chloride 0.9% 250 ML 250 MG IV (00:09)
[2023-04-12] MEDS: enoxaparin 80 mg/0.8 mL Syringe 70 MG SUBCUT (01:10)
[2023-04-12] MEDS: sodium chloride 0.9% 1,000 ML 999 ML IV (01:10)
[2023-04-12] MEDS: ketorolac 30 mg/mL INJ 15 MG IVP (01:34)
[2023-04-12 03:55] LABS: Basophils # 0.1 10^3/uL (0.0-0.1); Basophils % 0.5 %; Eosinophils # 0.1 10^3/uL (0.0-0.8); Eosinophils % 1.1 %; Hematocrit 35.1 % (36-47); Lymphocytes # 1.6 10^3/uL (0.8-4.8); Lymphocytes % 17.6 %; Mean Corpuscular Hemoglobin 29.8 pg (27-33); Mean Corpuscular Volume 90.2 fl (85-98); Mean Platelet Volume 10.6 fL (7.4-10.4); Monocytes # 0.6 10^3/uL (0.2-0.9); Monocytes % 6.8 %; Neutrophils # 6.81 10^3/uL (1.8-7.7); Neutrophils % 73.8 %; Nucleated Red Blood Cells % 0 %; Platelet Count 201 10^3/cmm (157-399); Red Blood Count 3.89 10^6/uL (3.85-5.65); White Blood Count 9.23 10^3/uL (3.29-11.43)
[2023-04-12 04:23] LABS: Anion Gap 13.4 (5-19); Blood Urea Nitrogen 9 mg/dL (8-23); C Reactive Protein 35.7 mg/L (0.0-4.9); Calcium 8.3 mg/dL (8.5-10.5); Carbon Dioxide 21 mmol/L (22-29); Chloride 106 mmol/L (98-107); Glucose 175 mg/dL (65-115); Magnesium 1.7 mg/dL (1.7-2.3); Osmolality Calculated 287 mOsm/kg (285-295); Potassium 3.4 mmol/L (3.5-5.1); Sodium 137 mmol/L (136-145)
[2023-04-12] MEDS: piperacillin-tazobactam 3.375 GM in sodium chloride 0.9% (plus) 50 ML IV ×2 (05:34→20:18)
[2023-04-12 06:43] LABS: Glucose Point of Care 136 mg/dL (70-110)
--- NOTE | 2023-04-12 08:22 | PC.SOCIAL ---
IMM Update pg 2 of IMM not updated w/ patient @ this time as she is currently in observation status.
--- NOTE | 2023-04-12 10:09 | P.PN_ITS ---
Subjective Subjective: Kanika reports her leg is rendering equipment tender but, but perhaps a little less so. Still very red. She reports this is her third episode of cellulitis. History and physical was reviewed. Medications: Reviewed: Yes Vitals/I&O/Wt Last Vital Signs Temp 98.2 F 04/12/23 08:06 Pulse 76 04/12/23 08:06 Resp 15 04/12/23 08:06 BP 118/70 04/12/23 08:06 Pulse Ox 96 04/12/23 08:06 O2 Del Method Room Air 04/12/23 08:06 04/11/23 04/12/23 04/12/23 22:59 06:59 14:59 Intake Total 1250 / 1250 240 / 240 Balance 1250 / 1250 240 / 240 Weight last 48 hrs Weight 69.598 kg Weight 68.039 kg Weight 68.039 kg Physical Exam Narrative: General exam is no distress Neck is supple Cardiovascular regular rate and rhythm Lungs clear Abdomen is soft Extremities no cyanosis or clubbing. Venous stasis changes are noted bilaterally. Erythema, increased warmth all consistent with cellulitis noted left lower extremity, rather widespread from ankle almost to the knee. Pulses intact. Data 04/12/23 03:25 04/12/23 03:25 Other Labs: Chest CTA reviewed, no pulmonary emboli. Venous duplex reviewed no DVT Lower extremity CT reviewed no abscess Blood cultures were drawn I reviewed EKG on admission which demonstrated sinus tachycardia left axis deviation and nonspecific ST-T wave changes Micro: Microbiology 04/11/23 20:45 Blood Culture - Preliminary Blood SPECIMEN COLLECTED 04/11/23 20:33 Blood Culture - Preliminary Blood SPECIMEN COLLECTED A&P Assessment and plan (1) Cellulitis of left lower leg: Patient presents with cellulitis of the leg, this is recurrent Currently she is on vancomycin and Zosyn. Continue to monitor Vanco levels, CBC, CMP daily as vancomycin is a high risk medicine and renal function will need to be monitored. Venous duplex was performed that was negative and CT leg showed no abscess. (2) Diabetes: Patient with diabetes. Continue sliding scale insulin Consistent carb diet Hold metformin (3) Hypertension: Holding patient's lisinopril currently, there was concern she might become hypotensive. She was also tachycardic yesterday but PE has been ruled out. Plan Other medical problems as outlined in past medical history Full code Lovenox for DVT prophylaxis, dose can be reduced to DVT prophylaxis dosing. Attestations Medical Necessity Statement*: She is significantly ill with cellulitis, and has had 3 recurrent episodes in the last year. She warrants full admission, to receive IV antibiotics to make sure that this is improving prior to discharge. She reports documented fever at home up to 101 ?F and I would certainly want her to be afebrile for greater than 48 hours prior to discharge. Diagnoses Cellulitis of left lower leg L03.116 Diabetes E11.9 Hypertension I10 Time Spent (min) 27
[2023-04-12] MEDS: FUROsemide 20 mg Tablet PO (10:15)
[2023-04-12] MEDS: potassium chloride ER 20 mEq Tablet 40 MEQ PO (10:15)
[2023-04-12] MEDS: magnesium oxide 400 mg tablet PO ×2 (10:15→17:09)
[2023-04-12 12:08] LABS: Glucose Point of Care 128 mg/dL (70-110)
[2023-04-12] MEDS: vancomycin 750 MG in sodium chloride 0.9% 250 ML 250 MG IV (12:41)
[2023-04-12 18:16] LABS: Glucose Point of Care 168 mg/dL (70-110)
[2023-04-12 21:37] LABS: Glucose Point of Care 129 mg/dL (70-110)
--- NOTE | 2023-04-12 22:17 | USCV_ITS ---
EncinasKanika Age: 77 Gender: F : 1945 Exam Date: 04/12/2023 09:16 Ordering Phys: Arturo Smith MD Technologist: Oneal Perry Exam Location: [facility] [place] Indication: lt leg pain and swelling PROCEDURES: The venous duplex Doppler examination of both lower extremities was performed in the standard fashion. The following venous structures were evaluated: common femoral vein, profunda vein, proximal portion of the greater saphenous vein, superficial femoral vein, and the popliteal vein. In addition, the posterior tibial and peroneal trunk were evaluated. FINDINGS: Normal 2-D Doppler and augmentation and compressibility throughout the lower extremity venous structures. Additional imaging through the proximal calf veins also reveals no thrombus. Limited evaluation of the greater saphenous vein is patent with no thrombus. CONCLUSIONS No DVT bilateral lower extremities. Dr. Jania Gudino DO (Electronically Signed) Final Date: 12 April 2023 10:59 S
[2023-04-12] MEDS: enoxaparin 40 mg/0.4 mL Syringe SUBCUT (23:00)
[2023-04-13] VITALS: BP 146/83; PULSE 80; RESP 16; TEMP 37.2; O2SAT 95
[2023-04-13] MEDS: vancomycin 750 MG in sodium chloride 0.9% 250 ML 250 MG IV ×2 (00:16→15:48)
[2023-04-13] MEDS: piperacillin-tazobactam 3.375 GM in sodium chloride 0.9% (plus) 50 ML IV ×3 (03:03→20:10)
[2023-04-13 07:58] VITALS: PULSE 86; RESP 18; O2SAT 98
[2023-04-13 08:22] LABS: Glucose Point of Care 105 mg/dL (70-110)
[2023-04-13] MEDS: FUROsemide 20 mg Tablet PO (08:22)
[2023-04-13] MEDS: potassium chloride ER 10 mEq Tablet PO (08:22)
[2023-04-13] MEDS: magnesium oxide 400 mg tablet PO ×2 (08:22→17:32)
[2023-04-13 08:27] LABS: Alanine Aminotransferase 13 U/L (0-33); Albumin Level 3.3 g/dL (3.5-5.2); Alkaline Phosphatase 53 U/L (35-105); Anion Gap 15.7 (5-19); Aspartate Amino Transferase 18 U/L (0-32); Blood Urea Nitrogen 11 mg/dL (8-23); Calcium 8.7 mg/dL (8.5-10.5); Carbon Dioxide 20 mmol/L (22-29); Chloride 107 mmol/L (98-107); Globulin 3.1 g/dL (1.3-4.6); Glucose 116 mg/dL (65-115); Osmolality Calculated 288 mOsm/kg (285-295); Potassium 3.7 mmol/L (3.5-5.1); Sodium 139 mmol/L (136-145); Total Bilirubin 0.8 mg/dL (0.15-1.2); Total Protein 6.4 g/dL (6.6-8.7)
[2023-04-13 09:19] LABS: Basophils % 0.8 %; Eosinophils # 0.2 10^3/uL (0.0-0.8); Eosinophils % 4.4 %; Lymphocytes # 1.7 10^3/uL (0.8-4.8); Lymphocytes % 34.5 %; Mean Corpuscular HGB Conc 30.8 g/dL (30-55); Mean Corpuscular Hemoglobin 29.6 pg (27-33); Monocytes # 0.5 10^3/uL (0.2-0.9); Monocytes % 10.1 %; Neutrophils # 2.53 10^3/uL (1.8-7.7); Nucleated Red Blood Cells % 0 %; Platelet Count 181 10^3/cmm (157-399); Red Blood Count 3.75 10^6/uL (3.85-5.65); White Blood Count 5.05 10^3/uL (3.29-11.43)
--- NOTE | 2023-04-13 09:51 | PC.CHAP ---
Pastoral Care Encounter/Spiritual Assessment Type of Contact [] Declined brake specialist visit [] Patient/Family/Request visit [] Outpatient visit [] Follow-up visit [] Physician referral [] Code/Alert [x] Routine visit [] Staff referral [] Actively dying [] Patient sleeping [] Family support [] [] Out of room [] Palliative care [] [] Receiving care in room [] Pre-surgical visit [] Trauma [] Long length of stay [] ICU visit [] Other: Relational/Emotional Strength [x] Patient feels connected with others/family/visitors/staff [] Distress [] Loneliness/isolation [] Abandonment Spirituality of Patient [x] Person of Latrice [] Attends Islam of their Latrice [x] Believes in Prayer [] Reads Bible or Yazidi materials [] There are Spiritual issues to be addressed Scoring Machine Operator Interventions [x] Prayer [] Active listening [] Non-anxious presence [x] Spiritual/emotional support [] Crisis/trauma care [] Spiritual counseling [] Bereavement support [] Provided bereavement packet [] Provided Bible/devotional materials [] Provided toy/stuffed animal, coloring book to patient or family member [] Provided Communion [] Anointing/[place] [] Salvation [x] Completed spiritual assessment [] Other: Impact on Illness or Injury [] Angry [] Fearful [] Anxious [] Often cries [] Exhaustion [] Unable to work [] Unable to attend baptism [] Unable to walk/stand [] Unable to read [] Unable to drive [] Unable to eat/drink [] Unable to sleep [] Unable to be with family [] Patient intubated [] Other: Summary Time spent with patient 5 min
--- NOTE | 2023-04-13 10:49 | P.PN_ITS ---
Subjective 2 Subjective: Kanika reports she feels like the leg is a little bit better. It is still red. Tmax is 99 ?F the last 24 hours. She reports pain is slightly less. Medications: Reviewed: Yes Vitals/I&O/Wt Last Vital Signs Temp 99.0 F 04/13/23 00:00 Pulse 86 04/13/23 07:58 Resp 18 04/13/23 07:58 BP 146/83 04/13/23 00:00 Pulse Ox 98 04/13/23 07:58 O2 Del Method Room Air 04/13/23 07:58 04/12/23 04/13/23 04/13/23 22:59 06:59 14:59 Intake Total 490 / 1020 300 / 1320 240 / 240 Balance 490 / 1020 300 / 1320 240 / 240 Weight last 48 hrs Weight 69.598 kg Weight 68.039 kg Weight 68.039 kg Physical Exam 2 Narrative: General exam is no distress Neck is supple Cardiovascular regular rate and rhythm Lungs clear Abdomen is soft Extremities no cyanosis or clubbing. Venous stasis changes are noted bilaterally. Erythema, increased warmth all consistent with cellulitis noted left lower extremity, rather widespread from ankle almost to the knee. Pulses intact. Erythema is no worse. It is slightly darker/less red Data 04/13/23 04:13 04/13/23 04:13 Other Labs: Blood cultures are negative to date CBC, CMP reviewed Micro: Microbiology 04/11/23 20:45 Blood Culture - Preliminary Blood NEGATIVE TO DATE 04/11/23 20:33 Blood Culture - Preliminary Blood NEGATIVE TO DATE A&P Assessment and plan (1) Cellulitis of left lower leg: Patient presents with cellulitis of the leg, this is recurrent Currently she is on vancomycin and Zosyn. Continue to monitor Vanco levels, CBC, CMP daily as vancomycin is a high risk medicine and renal function will need to be monitored. Venous duplex was performed that was negative and CT leg showed no abscess. She is improving, and can likely be discharged tomorrow. (2) Diabetes: Patient with diabetes. Continue sliding scale insulin Consistent carb diet Hold metformin (3) Hypertension: Restart patient's lisinopril Plan Other medical problems as outlined in past medical history Full code Lovenox for DVT prophylaxis Attestations 2 Medical Necessity Statement*: Needs continued hospitalization for IV antibiotics related to cellulitis, leg Diagnoses Cellulitis of left lower leg L03.116 Diabetes E11.9 Hypertension I10 Time Spent (min) 21
[2023-04-13 12:00] VITALS: BP 152/82; PULSE 86; RESP 18; TEMP 36.6; O2SAT 98
[2023-04-13] MEDS: lisinopril 20 mg Tablet PO (12:05)
[2023-04-13 13:36] LABS: Glucose Point of Care 182 mg/dL (70-110)
[2023-04-13] MEDS: insulin lispro 100 unit/1 mL SUBCUT ×2 (14:04→18:42)
[2023-04-13 16:00] VITALS: BP 152/82; PULSE 77; RESP 16; TEMP 36.6; O2SAT 100
[2023-04-13 18:42] LABS: Glucose Point of Care 176 mg/dL (70-110)
[2023-04-13 20:00] VITALS: BP 151/76; PULSE 76; PULSE 88; RESP 16; RESP 17; TEMP 36.8; O2SAT 97
[2023-04-13 21:54] LABS: Glucose Point of Care 93 mg/dL (70-110)
[2023-04-13 22:00] VITALS: PULSE 69
[2023-04-13] MEDS: enoxaparin 40 mg/0.4 mL Syringe SUBCUT (22:57)
[2023-04-14] VITALS: BP 152/80; PULSE 73; RESP 17; TEMP 36.9; O2SAT 97
[2023-04-14 01:01] LABS: Vancomycin Trough 13.1 ug/mL (10-15)
[2023-04-14] MEDS: vancomycin 750 MG in sodium chloride 0.9% 250 ML 250 MG IV (01:18)
[2023-04-14 04:00] VITALS: BP 121/71; PULSE 65; RESP 17; TEMP 36.8; O2SAT 95
[2023-04-14] MEDS: piperacillin-tazobactam 3.375 GM in sodium chloride 0.9% (plus) 50 ML IV (04:58)
[2023-04-14 05:04] LABS: Basophils % 0.9 %; Eosinophils # 0.3 10^3/uL (0.0-0.8); Eosinophils % 6.8 %; Hematocrit 35.1 % (36-47); Lymphocytes # 1.9 10^3/uL (0.8-4.8); Lymphocytes % 43.6 %; Mean Corpuscular HGB Conc 32.2 g/dL (30-55); Mean Corpuscular Hemoglobin 29.2 pg (27-33); Mean Corpuscular Volume 90.7 fl (85-98); Mean Platelet Volume 10.9 fL (7.4-10.4); Monocytes # 0.5 10^3/uL (0.2-0.9); Monocytes % 10.5 %; Neutrophils # 1.64 10^3/uL (1.8-7.7); Neutrophils % 38.2 %; Nucleated Red Blood Cells % 0 %; Platelet Count 206 10^3/cmm (157-399); Red Blood Count 3.87 10^6/uL (3.85-5.65); Red Cell Distribution Width 13.7 % (12.1-15.1); White Blood Count 4.29 10^3/uL (3.29-11.43)
[2023-04-14 05:24] LABS: Alanine Aminotransferase 21 U/L (0-33); Albumin Level 3.4 g/dL (3.5-5.2); Alkaline Phosphatase 56 U/L (35-105); Anion Gap 13.9 (5-19); Aspartate Amino Transferase 37 U/L (0-32); Blood Urea Nitrogen 11 mg/dL (8-23); Calcium 8.9 mg/dL (8.5-10.5); Carbon Dioxide 24 mmol/L (22-29); Chloride 105 mmol/L (98-107); Globulin 3.1 g/dL (1.3-4.6); Glucose 101 mg/dL (65-115); Osmolality Calculated 288 mOsm/kg (285-295); Potassium 3.9 mmol/L (3.5-5.1); Sodium 139 mmol/L (136-145); Total Bilirubin 0.5 mg/dL (0.15-1.2); Total Protein 6.5 g/dL (6.6-8.7)
[2023-04-14 06:00] VITALS: PULSE 68
[2023-04-14 07:16] LABS: Glucose Point of Care 84 mg/dL (70-110)
[2023-04-14 07:37] VITALS: BP 153/81; PULSE 78; RESP 17; TEMP 36.6; O2SAT 99
[2023-04-14] MEDS: FUROsemide 20 mg Tablet PO (08:41)
[2023-04-14] MEDS: potassium chloride ER 10 mEq Tablet PO (08:41)
[2023-04-14] MEDS: lisinopril 20 mg Tablet PO (08:41)
[2023-04-14] MEDS: magnesium oxide 400 mg tablet PO (08:41)
[2023-04-14 09:06] VITALS: PULSE 76; RESP 16; O2SAT 99
--- NOTE | 2023-04-14 09:20 | P.DS_ITS ---
Discharge Providers Date of Admission: 04/12/23 09:29 Date of Discharge: April 14, 2023 Attending Provider at Admission: Arturo Smith MD Attending Provider at Discharge: Senthil Asher MD Primary Care Provider: MAHESH Lyons Diagnoses at Discharge Discharge Diagnosis (1) Cellulitis of left lower leg: Status: Acute (2) Diabetes: Status: Acute (3) Hypertension: Status: Acute Reason for Visit Reason for Visit: Rt Leg Pain Hospital Course Hospital Course Kanika presents to the hospital with left lower extremity redness, and concern of fever. She was noted to have cellulitis of the left lower extremity. Vancomycin and Zosyn were initiated. A venous duplex was performed which demonstrated no DVT. CT showed no abscess. With treatment she had slow improvement. She was able to be discharged on April 14, in good condition with resolving cellulitis. She was given opportunity ask questions and agreed with the plan. Physical Exam Narrative: General exam no distress Neck is supple Cardiovascular regular rate and rhythm, no murmur Lungs clear Abdomen soft Extremities no cyanosis clubbing. Erythema resolving left lower extremity with edema persistent Discharge Data Studies Completed and Pending Completed Studies During Hospitalization Category Date Time Status CTA PE [CT angio chest PE protcl [id number]] Stat Cat Scan 04/11/23 22:17 [place] [id number] Stat Ultrasound 04/12/23 22:17 Completed Pending at discharge Category Date Time Status Blood Culture Stat Lab 04/11/23 20:45 Results Radiology Impressions Chest CTA 04/11/23 22:17 IMPRESSION: 1. No pulmonary emboli. 2. No focal consolidation. 3. Diffuse scattered calcified granulomas throughout both lungs with multiple calcified mediastinal and bilateral hilar lymph nodes which can be seen the setting of prior granulomatous infection or granulomatous diseases such as sarcoidosis. 4. Scattered calcified nodules throughout the liver consistent with prior granulomatous infection. Laboratory Results WBC 4.29 10^3/uL (3.29-11.43) 04/14/23 04:13 RBC 3.87 10^6/uL (3.85-5.65) 04/14/23 04:13 Hgb 11.30 g/dL (11.27-16.99) 04/14/23 04:13 Hct 35.1 % (36-47) L 04/14/23 04:13 MCV 90.7 fl (85-98) D 04/14/23 04:13 MCH 29.2 pg (27-33) 04/14/23 04:13 MCHC 32.2 g/dL (30-55) 04/14/23 04:13 RDW 13.7 % (12.1-15.1) 04/14/23 04:13 Plt Count 206 10^3/cmm (157-399) 04/14/23 04:13 MPV 10.9 fL (7.4-10.4) H 04/14/23 04:13 Neut % (Auto) 38.2 % 04/14/23 04:13 Lymph % (Auto) 43.6 % 04/14/23 04:13 [place] % (Auto) 10.5 % 04/14/23 04:13 Eos % (Auto) 6.8 % 04/14/23 04:13 Baso % (Auto) 0.9 % 04/14/23 04:13 Neut # (Auto) 1.64 10^3/uL (1.8-7.7) L 04/14/23 04:13 Lymph # (Auto) 1.9 10^3/uL (0.8-4.8) 04/14/23 04:13 [place] # (Auto) 0.5 10^3/uL (0.2-0.9) 04/14/23 04:13 Eos # (Auto) 0.3 10^3/uL (0.0-0.8) 04/14/23 04:13 Baso # (Auto) 0.0 10^3/uL (0.0-0.1) 04/14/23 04:13 Nucleated RBC % (auto) 0 % 04/14/23 04:13 Nucleated RBCs # 0.0 /100WBC 04/14/23 04:13 D-Dimer 0.81 ug/mLFEU (0-0.59) H 04/11/23 20:33 Sodium 139 mmol/L (136-145) 04/14/23 04:13 Potassium 3.9 mmol/L (3.5-5.1) 04/14/23 04:13 Chloride 105 mmol/L (98-107) 04/14/23 04:13 Carbon Dioxide 24 mmol/L (22-29) 04/14/23 04:13 Anion Gap 13.9 (5-19) 04/14/23 04:13 BUN 11 mg/dL (8-23) 04/14/23 04:13 Creatinine 0.8 mg/dL (0.5-0.9) 04/14/23 04:13 GFR Calculation Not Reportable 04/14/23 04:13 Glucose 101 mg/dL (65-115) 04/14/23 04:13 POC Glucose 84 mg/dL (70-110) 04/14/23 06:50 Calculated Osmolality 288 mOsm/kg (285-295) 04/14/23 04:13 Lactic Acid 1.4 mmol/L (0.5-2.2) 04/11/23 20:33 Calcium 8.9 mg/dL (8.5-10.5) 04/14/23 04:13 Magnesium 1.7 mg/dL (1.7-2.3) 04/12/23 03:25 Total Bilirubin 0.5 mg/dL (0.15-1.2) 04/14/23 04:13 AST 37 U/L (0-32) H 04/14/23 04:13 ALT 21 U/L (0-33) 04/14/23 04:13 Alkaline Phosphatase 56 U/L (35-105) 04/14/23 04:13 C-Reactive Protein 35.7 mg/L (0.0-4.9) H 04/12/23 03:25 Total Protein 6.5 g/dL (6.6-8.7) L 04/14/23 04:13 Albumin 3.4 g/dL (3.5-5.2) L 04/14/23 04:13 Globulin 3.1 g/dL (1.3-4.6) 04/14/23 04:13 Procalcitonin 0.07 ng/mL (0-0.5) 04/11/23 20:33 Vancomycin Trough 13.1 ug/mL (10-15) 04/14/23 00:38 Vitals Last Vital Signs Temp 97.9 F 04/14/23 07:37 Pulse 76 04/14/23 09:06 Resp 16 04/14/23 09:06 BP 153/81 04/14/23 07:37 Pulse Ox 99 04/14/23 09:06 O2 Del Method Room Air 04/14/23 09:06 Discharge Plan Discharge Patient Disposition: Home Condition: Stable Prescriptions: New amoxicillin-pot clavulanate 875-125 mg tablet 1 tab PO BID Qty: 14 0RF doxycycline hyclate 100 mg capsule 100 mg PO BID 7 Days Qty: 14 0RF Continued metformin 500 mg tablet 1,000 mg PO BID (DME) LifestyleComfort Socks Large Misc See Rx Instructions .Route Qty: 1 0RF Rx Instructions: As directed lisinopril 20 mg tablet 20 mg PO DAILY Qty: 30 0RF potassium chloride 10 mEq tablet extended release 10 meq PO DAILY Qty: 30 0RF furosemide 20 mg tablet 20 mg PO DAILY Qty: 30 0RF Women's 50 Plus Multivitamin 400 mcg-500 mg calcium-20 mcg Tablet 1 tab PO DAILY Discharge Orders: Discharge Order (Routine); Ordered 04/14/23 Ordered By: Senthil Asher Other Ambulatory Orders: DME: Walker (Order) Location: None Selected Ordered By: Senthil Asher Physical Therapy Eval and Treat Outpatient (Order) Timeframe: 3 Days Facility: [facility] - Location: Physical Therapy [place] Ordered By: Senthil Asher Referrals: Mile Laird FNP [Primary Care Provider] - 04/19/23 11:30 am Discharge Diet: Cardiac Discharge Activity: Increase activity as tolerated Patient Instructions: Doxycycline (By mouth), Amoxicillin/Clavulanate Potassium (By mouth), Cellulitis (GEN), Opioid Safety Activity Restrictions/Additional Instructions: Hold all medicine as prescribed Follow-up with your primary care provider 3 to 5 days Return for any concerns Keep leg covered, to prevent injury from pets Discharge Attestations Time Spent in Discharge Care*: greater than 30 min Quality Metrics Clinical Quality Measures [ No reported AMI, CVA or VTE this stay] Coding Level of Care Code 88977 Total time (in minutes) for Discharge: 31 Diagnoses Cellulitis of left lower leg L03.116 Diabetes E11.9 Hypertension I10
--- NOTE | 2023-04-14 10:14 | PC.CHAP ---
Pastoral Care Encounter/Spiritual Assessment Type of Contact [] Declined podiatry doctor visit [] Patient/Family/Request visit [] Outpatient visit [] Follow-up visit [] Physician referral [] Code/Alert [] Routine visit [] Staff referral [] Actively dying [] Patient sleeping [x] Family support [] [] Out of room [] Palliative care [] [] Receiving care in room [] Pre-surgical visit [] Trauma [] Long length of stay [] ICU visit [] Other: Relational/Emotional Strength [x] Patient feels connected with others/family/visitors/staff [] Distress [] Loneliness/isolation [] Abandonment Spirituality of Patient [] Person of Latrice [] Attends Sabianism of their Latrice [x] Believes in Prayer [] Reads Bible or Jewish materials [] There are Spiritual issues to be addressed Data Designer Interventions [x] Prayer [x] Active listening [] Non-anxious presence [] Spiritual/emotional support [] Crisis/trauma care [] Spiritual counseling [] Bereavement support [] Provided bereavement packet [] Provided Bible/devotional materials [] Provided toy/stuffed animal, coloring book to patient or family member [] Provided Communion [] Anointing/[place] [] Salvation [] Completed spiritual assessment [] Other: Impact on Illness or Injury [] Angry [] Fearful [] Anxious [] Often cries [] Exhaustion [] Unable to work [] Unable to attend mormon [] Unable to walk/stand [] Unable to read [] Unable to drive [] Unable to eat/drink [] Unable to sleep [] Unable to be with family [] Patient intubated [] Other: Summary Time spent with patient 15 min
[2023-04-14 11:22] VITALS: PULSE 76; RESP 16; O2SAT 99
== END 2023-04-14 11:22 | disposition home or self-care (01) | DRG 603 ==
LOC: ER 22:51 → MEDSURG 23:14
PROVIDERS: Admitting Provider Internal Medicine; Emergency Provider Family Medicine; PCP Nurse Practitioner Family; Visit Provider Internal Medicine
DX: L03.116 Cellulitis of left lower limb (principal); E11.9 Type 2 diabetes mellitus without complications; I10 Essential (primary) hypertension; R00.0 Tachycardia, unspecified; Z79.84 Long term (current) use of oral hypoglycemic drugs
CPT/HCPCS: 36415; 36416; 71275; 80048; 80053; 80202; 82962; 83605; 83735; 84145; 85025; 85378; 86140; 87040; 93005; 93010; 93970; 96365; 96372; 97110; 97161; 99285; G0378; J1650; J1815; J1885; J2543; J3370; J7030; J7050; Q9967

== ENCOUNTER 2023-04-28 12:23 | Outpatient (RCR) | payer MEDICARE, OTHER, SELFPAY | END 2023-05-16 23:59 | disposition home or self-care (01) | LOC: SPT 12:23 | PROVIDERS: PCP Internal Medicine; Visit Provider Internal Medicine | DX: L03.116 Cellulitis of left lower limb (principal); I87.2 Venous insufficiency (chronic) (peripheral) | CPT/HCPCS: 97140; 97161 ==

== ENCOUNTER → 2023-07-09 10:45 | Outpatient (BNVA) | payer MEDICARE, OTHER, SELFPAY | PROVIDERS: PCP Nurse Practitioner Family; Visit Provider Podiatrist Foot & Ankle Surgery | DX: E11.69 Type 2 diabetes mellitus with other specified complication; L60.3 Nail dystrophy; Z79.84 Long term (current) use of oral hypoglycemic drugs | CPT/HCPCS: 99203 ==